=== PATIENT | male | born 1965 | race Caucasian/White ===

== ENCOUNTER 2023-12-10 15:08 | Emergency (ER) | payer BC, SELFPAY ==
[2023-12-10 15:12] VITALS: BP 185/105
[2023-12-10 15:41] LABS: % Basophils 0.4 % (0-2); % Eosinophils 1.4 % (0-6); % Immature Granulocytes 0.1 % (0-0.5); % Lymphocytes 35.3 % (20.5-51.1); % Monocytes 8.2 % (1.7-9.3); % Neutrophils 54.6 % (42.2-75.2); Absolute Eosinophils 0.1 10^3/uL (0-0.7); Absolute Lymphocytes 2.5 10^3/uL (1.2-3.4); Absolute Monocytes 0.6 10^3/uL (0.1-0.6); Absolute Neutrophils 3.9 10^3/uL (1.4-6.5); Hematocrit 48.1 % (39.0-52.0); Mean Corp Hgb Conc. 33.3 g/dL (33.0-37.0); Mean Corpuscular Hgb 27.8 pg (27.0-31.0); Mean Corpuscular Volume 83.7 fL (80.0-94.0); Mean Platelet Volume 8.9 fL (7.4-10.4); Nucleated Red Blood Cells % 0 % (-); Platelet Count 276 10^3/uL (130-400); Red Blood Cell Count 5.75 10^6/uL (4.70-6.10); Red Cell Dist. Width 14.2 % (11.5-14.5); White Blood Cell Count 7.1 10^3/uL (4.8-10.8)
[2023-12-10 15:58] LABS: ALT (SGPT) 20 U/L (0-50); AST (SGOT) 24 U/L (17-59); Albumin 4.6 g/dl (3.5-5.0); Alkaline Phosphatase 67 U/L (38-126); Blood Urea Nitrogen 11 mg/dl (9-20); Calcium 9.7 mg/dl (8.4-10.2); Carbon Dioxide 25 mmol/L (22-30); Chloride 103 mmol/L (98-107); Glucose 100 mg/dl (70-99); Potassium 4.2 mmol/L (3.5-5.1); Sodium 138 mmol/L (135-145); Total Bilirubin 0.9 mg/dl (0.2-1.3); Total Protein 7.3 g/dl (6.3-8.2); eGFR > 60.00
--- NOTE | 2023-12-10 17:29 | ED.GENMED ---
History of Present Illness
General
Chief Complaint: Visual Problem
Source: patient
Exam Limitations: none
Time Seen by Provider: 12/10/23 16:55
Nursing documentation reviewed up to this point in time: agreed with
Travel History
Have you had any contact with someone who has COVID-19?: No
Do you have any symptoms of coronavirus? Fever > 100 degrees, chills, cough, shortness of breath, sore throat, loss of taste or smell, muscle aches, or headache?: No
History of Present Illness
History of Present Illness:
58-year-old male presents emergency department due to a headache of the past 4 to 5 days. He states his vision has been going in and out as well. He notes that he is having spots of blurred vision. He went to urgent care who was concerned for a
neurological event. He does get headaches and has had this for the past several months.
Past History
Past History
ED Past Medical History: Other (GI bleed, liver cirrhosis)
ED Past Surgical History: Appendectomy, Orthopedic (Spinal cord stimulator) and Other (Gastric bypass )
Social History
Tobacco: Non-smoker
Personal:
Living: with family
Employment: Not employed
Review of Systems
Review of Systems
Allergies reviewed?: Yes
All Other Systems: Not applicable
Constitutional: Reports no symptoms
EENT: Reports other (Vision changes)
Respiratory: Reports no symptoms
Cardiac: Reports no symptoms
ABD/GI: Reports no symptoms
: Reports no symptoms
Musculoskeletal: Reports no symptoms
Skin: Reports no symptoms
Neurological: Reports headache
Endocrine: Reports no symptoms
Hematologic/Lymphatic: Reports no symptoms
Psychiatric: Reports no symptoms
Phy Exam
Physical Exam
Physical Exam:
Physical Exam
General: no apparent distress, not acutely ill
Neck: supple. no meningeal signs. normal posterior pharynx
Heart: s1/s2 regular rate and rhythm, no murmur. equal radial
pulses.
HEENT: Pupils equal round reactive to light, EOMI
Lungs: no acute respiratory distress. clear bilaterally
Abdomen: normal bowel sounds. not tender. no CVAT
Neuro: alert and oriented. no focal neurological deficits cranial nerves II through XII intact
Skin: no rash
Psychiatric: well kept. interactive and cooperative
Extremities: no edema. no calf tenderness. negative homans. good distal pulses
Course
Orders/Labs/Results
Orders:
Orders
12/10/23 15:28
Complete Blood Count/With Diff Urgent
Comprehensive Metabolic Panel Urgent
12/10/23 17:27
CT Head W/o Iv Contrast Urgent
Comment:
Reason For Exam: headache, intermittent spots in vision
12/10/23 17:37
Sumatriptan Succinate [Imitrex] 50 mg PO NOW STA
12/10/23 20:27
Acetaminophen [Tylenol] 650 mg PO NOW STA
12/10/23 21:05
Electrocardiogram (*1) Urgent
Reason for Study: Vertigo / Dizzy
EKG- Treatment ONCE
12/10/23 21:25
Metoprolol Xl [Toprol Xl] 25 mg PO NOW STA
Abnormal Lab Results
12/10/23
15:28
Glucose 100 H mg/dl
(70-99)
12/10/23 15:28
12/10/23 15:28
Vital Signs
Initial and Last Documented VS:
Initial Vital Signs
Temp Pulse Resp BP Pulse Ox
98.1 F 79 20 185/105 98
12/10/23 15:12 12/10/23 15:12 12/10/23 15:12 12/10/23 15:12 12/10/23 15:12
Last Documented Vital Signs
Temp Pulse Resp BP Pulse Ox
98.1 F 76 18 176/94 98
12/10/23 15:12 12/10/23 21:05 12/10/23 21:05 12/10/23 21:05 12/10/23 21:05
MDM/Problems Addressed
Differential Diagnosis Includes:
Intracranial hemorrhage, intracranial tumor, CVA, migraine
MDM/Problems Addressed:
58-year-old male with headache, mild hypertension, incidental 2 cm arachnoid cyst. Do not suspect CVA or intracranial hemorrhage. Stable for discharge. Patient has had symptoms intermittently over the past several months.
*Radiology
Radiology exam reviewed: radiology read reviewed (CT head shows small arachnoid cyst left frontal)
*Pulse Oximetry
Patient hypoxic: no
*EKG
Interpreted by ED Provider?: NA
*Civil Engineering Specialist Interpretation
Rate: Civil Engineering Specialist- N/A
*Critical Care Note
Total Time (30-74mins, 75-104mins- exclusive of procedures): Not Applicable
Patient Management
Social determinants of health affecting care: Living situation
Escalation/DeEscalation of care consider admission/obs:
admit not indicated
ED Attending Note
-
Portions of this chart may have been created with voice recognition software.� Occasional wrong word or��sound alike� substitutions may have occurred due to the inherent limitations of voice recognition software.
Discharge Plan
Departure
Patient Disposition: Home (Routine Discharge)
Date of Disposition: 12/10/23
Time of Disposition: 20:55
Patient with high blood pressure during this ER visit?: Yes
Discharge Problem:
Headache, Arachnoid cyst
Instructions: Headache, Adult (DC), Cysts in the Brain, BLOOD PRESSURE
Prescriptions:
New
metoprolol succinate [Toprol XL] 25 mg tablet extended release 24 hr
25 mg PO DAILY Qty: 30 0RF
No Action
Folic Acid
1 tab PO 3XW
Super B Complex
1 tab PO 3XW
Vitamin B-12
1 tab sublingual WEEKLY
NORTRIPTYLINE HCL
1 tab PO PRN (Reason: neck pain or spasm)
Referrals:
Ruiz Chan, [Active] - Call in 1-3 days for appt
NONE,* [Family Provider] -
Interventions
Interventions:
*Risk Screen - Suicide Last Done: 12/10/23 15:12
*General Assessment Last Done: 12/10/23 15:12
*Neglect/Abuse Screening Last Done: 12/10/23 15:12
ED- Fall Risk Assessment Last Done: 12/10/23 21:36
*ED COVID-19 Vaccine History Last Done: 12/10/23 21:36
*Nursing Disposition Last Done: 12/10/23 21:36
ED- Neurological Assessment Last Done: 12/10/23 18:21
ED-EENT Assessment Last Done: 12/10/23 18:21
Discharge Date and Time
Discharge Date/Time: 12/10/23 21:37
Print Language: ALBANIAN
[2023-12-10] MEDS: IMITREX 50 MG PO (18:15)
[2023-12-10 18:21] VITALS: BP 164/96
[2023-12-10] MEDS: TYLENOL 650 MG PO (20:31)
[2023-12-10 21:05] VITALS: BP 176/94
[2023-12-10] MEDS: TOPROL XL 25 MG PO (21:29)
== END 2023-12-10 21:37 | disposition home or self-care (01) ==
LOC: EMR 15:08
PROVIDERS: Emergency Medicine; EMERGENCY PHYSICIAN Emergency Medicine
DX: R51.9 Headache, unspecified (principal); G93.0 Cerebral cysts; K74.60 Unspecified cirrhosis of liver; I10 Essential (primary) hypertension; Z90.49 Acquired absence of other specified parts of digestive tract; Z98.84 Bariatric surgery status
CPT/HCPCS: 99284; 70450; 80053; 85025; 93005

== ENCOUNTER → 2024-01-02 12:20 | Outpatient (REF) | payer BC, SELFPAY | LOC: RCS 12:20 | PROVIDERS: ATTENDING PHYSICIAN Nurse Practitioner Family | DX: R03.0 Elevated blood-pressure reading, without diagnosis of hypertension (principal); R42 Dizziness and giddiness | CPT/HCPCS: 93005 ==

== ENCOUNTER → 2024-01-16 06:36 | Day surgery (SDC) | payer BC, SELFPAY | LOC: GI 06:36 | PROVIDERS: ATTENDING PHYSICIAN Internal Medicine Gastroenterology; FAMILY PHYSICIAN Nurse Practitioner Family | DX: Z12.11 Encounter for screening for malignant neoplasm of colon (principal); D12.4 Benign neoplasm of descending colon; D12.5 Benign neoplasm of sigmoid colon; K64.8 Other hemorrhoids; Z80.0 Family history of malignant neoplasm of digestive organs | CPT/HCPCS: 45385; 45380; 88305 ==

== ENCOUNTER → 2024-02-19 10:36 | Outpatient (REF) | payer BC, SELFPAY ==
[2024-02-19 13:23] LABS: Glycohemoglobin (HgbA1c) 5.7 % (4.0-5.6)
[2024-02-19 13:30] LABS: HDL Cholesterol 54 mg/dl; LDL Cholesterol, Calculated 117 mg/dl; Total Cholesterol 188 mg/dl (50-199); Triglyceride 87 mg/dl (10-149); Very Low Density Lipoprotein 17 mg/dl (0-30)
== END ==
LOC: RCS 10:36
PROVIDERS: ATTENDING PHYSICIAN Nurse Practitioner Family
DX: R03.0 Elevated blood-pressure reading, without diagnosis of hypertension (principal); R00.2 Palpitations; R07.89 Other chest pain
CPT/HCPCS: 93017; 36415; 80061; 83036; 93350; Q9957

== ENCOUNTER → 2025-08-30 14:30 | Outpatient (REF) | payer OTHER, SELFPAY | LOC: DHSLP 14:30 | PROVIDERS: ATTENDING PHYSICIAN Nurse Practitioner Family | DX: G47.33 Obstructive sleep apnea (adult) (pediatric) (principal) | CPT/HCPCS: 95800 ==